=== PATIENT | male | born 1990 | race Caucasian/White ===

== ENCOUNTER 2021-09-03 07:15 | Emergency (ER) | payer MEDICAID ==
[~2021-09-03] VITALS: Ht 177.8 cm; Wt 133.8 kg
[2021-09-03 07:24] VITALS: BP 148/97
--- NOTE | 2021-09-03 07:26 | NUR ---
PT AMBULATED TO CASE Jiang
--- NOTE | 2021-09-03 07:31 | NUR ---
DR. GAMEZ WITH PT FOR FURTHER EVALUATION.
[2021-09-03] MEDS ORDERED: ACETAMINOPHEN EXTRA STRENGTH 500 MG TAB PO ONE (07:35)
[2021-09-03] MEDS ORDERED: IBUP-2213 PO (07:39)
--- NOTE | 2021-09-03 07:43 | NUR ---
31 Y/O MALE C/O URINARY RETENTION X4DAYS. PT STATES HE USED "SPEED, COCAINE, AND MARIJUANA X2DAYS". DENIES FEVER/CHILLS. DENIES N/V/D. DENIES PMH NKA
[2021-09-03] MEDS ORDERED: ACETAMINOPHEN EXTRA STRENGTH 500 MG TAB ONE (07:45)
[2021-09-03 08:02] VITALS: BP 148/97
--- NOTE | 2021-09-03 08:03 | NUR ---
Patient discharged with v/s stable. Written and verbal after care instructions given FOR MUSCULOSKELETAL PAIN and explained. Patient alert, oriented and verbalized understanding of instructions. Ambulatory with steady gait. All questions addressed prior to discharge. ID band removed. Patient advised to follow up with PMD. Rx of IBUPROFEN given. Patient educated on indication of medication including possible reaction and side effects. Opportunity to ask questions provided and answered.
== END 2021-09-03 08:02 | disposition home or self-care (01) ==
LOC: MED 07:15
DX: M79.606 Pain in leg, unspecified (principal); G89.29 Other chronic pain
CPT/HCPCS: 99284